=== PATIENT | male | born 1945 | race Caucasian/White ===

== ENCOUNTER 2016-10-09 10:26 | Day surgery (SDC) | payer OTHER ==
[2016-10-09] MEDS ORDERED: MIDAZOLAM HCL 2 MG/2 ML SINGLE DOSE VIAL ONE ×2 (12:31)
--- NOTE | 2016-10-09 12:37 | OP ---
Operative Note - Note: Operative Date: 10/09/16 Pre-Operative Diagnosis: Bladder tumor Operation: TURBT Findings: left lat/post bladder tumor 2 cm Post-Operative Diagnosis: Same as Pre-op Surgeon: Rhys Fernandez MD. Anesthesia: General
[2016-10-09] MEDS ORDERED: PROPOFOL 20 ML ONE ×2 (12:43→13:00)
[2016-10-09] MEDS ORDERED: ceFAZolin SODIUM 1 GM VIAL IVPB ONE (12:51)
[2016-10-09] MEDS ORDERED: ceFAZolin SODIUM 1 GM VIAL ONE (12:53)
[2016-10-09] MEDS ORDERED: DESFLURANE GAS 240 ML BOTTLE IH ONE (13:07)
[2016-10-09] MEDS ORDERED: oxyCODONE HCL 5 MG TABLET PO PRN (14:05)
[2016-10-09] MEDS ORDERED: ONDANSETRON 4 MG/2 ML VIAL IVPUSH PRN (14:05)
[2016-10-09] MEDS ORDERED: LACTATED RINGERS SOLUTION 1,000 ML IV SCH (14:15)
[2016-10-09 15:41] VITALS: BP 143/93; PULSE 70
[2016-10-09 15:57] VITALS: TEMP 98.2
--- NOTE | 2016-10-10 14:56 | PATH ---
Surgical Pathology Report Patient Name: RICKY [facility]RI[facility]. Rec. #: [id number] /Age/Gender: 1945 (Age: 71) / F Account: [id number] Location: [facility] SURGICAL Taken: 10/09/2016 Received: 10/09/2016 Reported: 10/10/2016 Physicians: Rhys Fernandez M.D. 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 NO INVASION IDENTIFIED IN THE CURRENT SPECIMEN. MULTIPLE PORTIONS OF LAMINA PROPRIA WITH MARKEDLY DILATED BLOOD VESSELS, AREAS OF ACUTE INFLAMMATION AND NECROSIS, AND EXTENSIVE THERMAL ARTIFACT PRESENT. NO MUSCULARIS PROPRIA IDENTIFIED. Comment: This case was discussed with Dr. Fernandez on October 10, 2016. A copy of the surgical pathology report from the patient's prior procedure of September 25, 2016 was provided as a courtesy. Electronically Signed John Triplett M.D. Gross Description Received in formalin labeled "bladder tumor," is a 3.2 x 1.5 x 0.3 cm aggregate of malik pink soft tissue fragments. The formalin is filtered and the specimen is entirely submitted in 2 cassettes. /10/09/2016 saudi10/09/2016
== END 2016-10-09 15:41 | disposition home or self-care (01) ==
LOC: JASU-SURG 10:26 → EDSEX 12:00 → JASU-SURG 15:41
PROVIDERS: ATTEND Urology
PROC: 0TBB8ZX Excision of Bladder, Via Natural or Artificial Opening Endoscopic, Diagnostic (ICD-10-PCS; principal; 2016-10-09 12:00)
DX: C67.9 Malignant neoplasm of bladder, unspecified (principal)
CPT/HCPCS: 88307-TC; 94760